=== PATIENT | female | born 1965 | race Caucasian/White ===

== ENCOUNTER → 2016-09-29 | Outpatient (CLI) | payer OTHER ==
[~2016-09-29] MED LIST: BENA25CA4 PO; CALC500T49 PO; CALC600T57 PO; CARA1TAB2 PO; DULE200A INH; EFFE75CA75 PO; GABA600T PO; HYDR1TAB97 PO; IRON65TA PO; METF500T PO; MULTTAB35 PO; OMEP40CA2 PO; PROA1AER IN; SING10TA32 PO; TRAM50TA2 PO; TYLE325T5 PO; VITA2000 PO; VITA500L3 PO; VITMTA PO
--- NOTE | 2016-09-29 13:43 | REP ---
MR LUMBAR SPINE WITHOUT CONTRAST: HISTORY: Piriformis muscle pain. COMPARISON: 05/25/2011. Decreased signal intensity on T2-weighted images is present in the L5-S1 intervertebral disc. This represents disc degeneration. There is no disc bulge or herniation at the L1-2, L2-3, and L5-S1 levels. There is hypertrophy of the posterior articulating facets at the L5-S1 level. The nerves exit the neural foramina without compression. A diffuse disc bugle is present at the L3-4 level. There is minimal compression of the thecal sac. There is hypertrophy of the posterior articulating facets. The L3 nerves exit the neural foramina without compression. A diffuse disc bulge is present at the L4-5 level. There is minimal compression of the thecal sac. There is hypertrophy of the posterior articulating facets. There is compression of the right L4 nerve in the neural foramen. The left L4 nerve exits the neural foramen without compression. The conus medullaris is normal in appearance terminating at the level of the L1 vertebral body. An increased amount of fat is present in the spinal canal at the L4-5 and L5-S1 levels. This is decreased compared to the previous study. A hemangioma is present in the L2 vertebral body. Normal signal intensity is present in the remaining lumbar vertebral bodies. IMPRESSION: 1. Diffuse disc bulges at the L3-4 and L4-5 levels with minimal thecal sac compression. There is compression of the right L4 nerve in the neural foramen. The disc bulge at the L4-5 level and right L4 nerve compression are new findings. 2. There is lipomatosis at the L4-5 and L5-S1 levels that is decreased compared to the previous study. Signed by Binu Pineda MD 09/29/2016 01:53 P
== END ==
LOC: M RAD 11:22
PROVIDERS: ATTEND Nurse Practitioner Family
DX: M79.1 Myalgia (principal); M51.26 Other intervertebral disc displacement, lumbar region; E88.2 Lipomatosis, not elsewhere classified

== ENCOUNTER → 2019-05-23 | Outpatient (REF) | payer OTHER ==
[~2019-05-23] MED LIST changes: -CARA1TAB2 PO; +CARA1TAB6 PO; +EFFE75CA2 PO; -EFFE75CA75 PO; -GABA600T PO; +GABA600T4 PO; +HYDR-3713 PO; -HYDR1TAB97 PO; -METF500T PO; +METF500T13 PO; -PROA1AER IN; +PROAAER10 IN
[2019-05-23 17:17] LABS: HEMATOCRIT 42.6 % (36.0-47.0); HEMOGLOBIN 13.8 g/dl (12.0-15.5); MEAN CORPUSCULAR HEMOGLOBIN 32.2 pg (27.0-33.0); MEAN CORPUSCULAR HGB CONC 32.4 g/dl (32.0-36.5); MEAN CORPUSCULAR VOLUME 99.5 fl (80.0-96.0); PLATELET COUNT, AUTOMATED 331 10^3/uL (150-450); RED BLOOD COUNT 4.28 10^6/uL (4.00-5.40); WHITE BLOOD COUNT 10.5 10^3/uL (4.0-10.0)
[2019-05-23 17:26] LABS: ALBUMIN 3.5 GM/DL (3.2-5.2); ALT/SGPT 47 U/L (12-78); BILIRUBIN,TOTAL 0.3 MG/DL (0.2-1.0); BLOOD UREA NITROGEN 12 MG/DL (7-18); CALCIUM LEVEL 8.8 MG/DL (8.5-10.1); CARBON DIOXIDE LEVEL 27 MEQ/L (21-32); CHLORIDE LEVEL 109 MEQ/L (98-107); CREATININE FOR GFR 0.66 MG/DL (0.55-1.30); FERRITIN 31 NG/ML (8-252); GLOMERULAR FILTRATION RATE > 60.0 (>51); GLUCOSE, FASTING 101 MG/DL (70-100); IRON (FE) 67 UG/DL (50-170); PERCENT SATURATION 20.8 % (13.2-45.0); POTASSIUM SERUM 4.1 MEQ/L (3.5-5.1); SODIUM LEVEL 141 MEQ/L (136-145); TOTAL IRON BINDING CAPACITY 322 UG/DL (250-450); TOTAL PROTEIN 7.1 GM/DL (6.4-8.2)
[2019-05-23 17:34] LABS: TOTAL 25(OH) VITAMIN D 50.6 NG/ML (30.0-100.0); VITAMIN B12 LEVEL 395 PG/ML (247-911)
[2019-05-23 17:52] LABS: HEMOGLOBIN A1c 6.4 %
== END ==
LOC: M SFHCPLAZ 15:46
PROVIDERS: ATTEND Nurse Practitioner Adult Health
DX: E53.8 Deficiency of other specified B group vitamins (principal); E55.9 Vitamin D deficiency, unspecified; Z98.84 Bariatric surgery status; Z86.39 Personal history of other endocrine, nutritional and metabolic disease

== ENCOUNTER 2019-06-22 11:36 | Emergency (ER) | payer OTHER ==
[~2019-06-22] VITALS: Ht 154.9 cm; Wt 94.6 kg
--- NOTE | 2019-06-22 13:28 | REP ---
Duplex extremity venous ultrasound: Left lower extremity. History: Left lateral calf pain and swelling. Question DVT. Findings: The deep veins are anechoic and fully compressible from the groin to the popliteal fossa in the left lower extremity. Color flow imaging is homogeneous. Spectral Doppler interrogation demonstrates intact respiratory variation in flow and normal manual augmentation of flow. There is no evidence of deep vein thrombosis. Impression: Negative left lower extremity duplex venous ultrasound. No evidence of deep vein thrombosis. Electronically Signed by Víctor Cartagena MD 06/22/2019 01:19 P
[2019-06-22 14:58] VITALS: BP 140/76
== END 2019-06-22 15:24 | disposition home or self-care (01) ==
LOC: M ED 11:36
DX: M79.662 Pain in left lower leg (principal); F33.9 Major depressive disorder, recurrent, unspecified; F41.9 Anxiety disorder, unspecified; Z86.718 Personal history of other venous thrombosis and embolism; Z98.84 Bariatric surgery status; Z79.899 Other long term (current) drug therapy; Z88.0 Allergy status to penicillin; Z88.1 Allergy status to other antibiotic agents; Z88.2 Allergy status to sulfonamides; Z91.048 Other nonmedicinal substance allergy status

== ENCOUNTER → 2019-11-14 | Outpatient (CLI) | payer OTHER ==
[~2019-11-14] MED LIST changes: -OMEP40CA2 PO; +OMEP40CA97 PO
== END ==
LOC: M WHC 13:43
PROVIDERS: ATTEND Nurse Practitioner Women's Health
DX: Z12.31 Encounter for screening mammogram for malignant neoplasm of breast (principal)

== ENCOUNTER → 2019-11-30 | Outpatient (CLI) | payer OTHER ==
--- NOTE | 2019-11-30 14:33 | REP ---
Pelvic sonography: History: Pelvic pain. Mainly left-sided. History of left ovarian cyst. Findings: Transabdominal and transvaginal scanning are included. Uterus is surgically absent. The right ovary is high in the pelvis and is only seen transabdominally. It is felt to be normal. It measures 2.0 x 2 point 2 x 1.4 cm. A normal left ovary is noted as well measuring 2.1 x 1.4 x 1.1 cm. No free fluid is seen. No cyst or mass is observed. Impression: Negative pelvic sonography post hysterectomy. Electronically Signed by Víctor Cartagena MD 11/30/2019 02:26 P
== END ==
LOC: M WHC 10:23
PROVIDERS: ATTEND Nurse Practitioner Women's Health
DX: N83.202 Unspecified ovarian cyst, left side (principal)

== ENCOUNTER → 2020-06-19 | Outpatient (CLI) | payer OTHER ==
[2020-06-19 17:45] LABS: HEMATOCRIT 41.8 % (36.0-47.0); HEMOGLOBIN 13.2 g/dl (12.0-15.5); MEAN CORPUSCULAR HEMOGLOBIN 31.1 pg (27.0-33.0); MEAN CORPUSCULAR HGB CONC 31.6 g/dl (32.0-36.5); MEAN CORPUSCULAR VOLUME 98.4 fl (80.0-96.0); PLATELET COUNT, AUTOMATED 333 10^3/uL (150-450); RED BLOOD COUNT 4.25 10^6/uL (4.00-5.40); WHITE BLOOD COUNT 11.1 10^3/uL (4.0-10.0)
[2020-06-19 18:02] LABS: HEMOGLOBIN A1c 6.4 %
[2020-06-19 18:12] LABS: ALBUMIN 3.4 GM/DL (3.2-5.2); ALT/SGPT 48 U/L (12-78); BILIRUBIN,TOTAL 0.4 MG/DL (0.2-1.0); BLOOD UREA NITROGEN 11 MG/DL (7-18); CALCIUM LEVEL 9.1 MG/DL (8.5-10.1); CARBON DIOXIDE LEVEL 25 MEQ/L (21-32); CHLORIDE LEVEL 114 MEQ/L (98-107); CHOLESTEROL LEVEL 122 MG/DL (<200); CREATININE FOR GFR 0.82 MG/DL (0.55-1.30); FERRITIN 30 NG/ML (8-252); GLOMERULAR FILTRATION RATE > 60.0 (>51); GLUCOSE, FASTING 130 MG/DL (70-100); HDL CHOLESTEROL 67 MG/DL (>40); IRON (FE) 96 UG/DL (50-170); LDL CHOLESTEROL 42 MG/DL (<100); NON-HDL-C 55 MG/DL; PERCENT SATURATION 30.5 % (13.2-45.0); POTASSIUM SERUM 5.3 MEQ/L (3.5-5.1); SODIUM LEVEL 144 MEQ/L (136-145); THYROID STIMULATING HORMONE 0.626 uIU/ML (0.358-3.740); TOTAL IRON BINDING CAPACITY 315 UG/DL (250-450); TOTAL PROTEIN 6.9 GM/DL (6.4-8.2); TRIGLYCERIDES LEVEL 66 MG/DL (<150)
[2020-06-19 18:14] LABS: TOTAL 25(OH) VITAMIN D 59.4 NG/ML (30.0-100.0)
[2020-06-19 18:15] LABS: VITAMIN B12 LEVEL 515 PG/ML (247-911)
== END ==
LOC: M PLALAB 14:23
PROVIDERS: ATTEND Nurse Practitioner Adult Health
DX: D51.9 Vitamin B12 deficiency anemia, unspecified (principal); Z13.29 Encounter for screening for other suspected endocrine disorder; E55.9 Vitamin D deficiency, unspecified; E78.5 Hyperlipidemia, unspecified; E66.01 Morbid (severe) obesity due to excess calories; Z86.39 Personal history of other endocrine, nutritional and metabolic disease; Z98.84 Bariatric surgery status

== ENCOUNTER → 2020-09-29 | Outpatient (CLI) | payer SELFPAY | LOC: M LABSMTC 12:27 | PROVIDERS: ATTEND Pediatrics | DX: Z20.822 Contact with and (suspected) exposure to COVID-19 (principal) ==

== ENCOUNTER → 2020-11-26 | Outpatient (CLI) | payer OTHER ==
--- NOTE | 2020-11-26 08:58 | REP ---
INDICATION: NAUSEA COMPARISON: None. TECHNIQUE: Real time dickens scale ultrasound examination using curved array transducer. FINDINGS: Liver is somewhat obscured by bowel gas, but visualized portions demonstrate heterogeneous echotexture without focal hepatic lesion identified. Pancreas is incompletely evaluated due to interposed bowel gas as well but visualized portions appear normal. Gallbladder is distended to 10.5 cm in length and roughly 3.5 cm diameter without wall thickening, gallstones, or pericholecystic fluid. No biliary ductal dilatation is appreciated and the common bile duct measures 4 mm diameter. Right kidney is normal in reniform shape without hydronephrosis and measures 11.4 x 5.5 x 4.5 cm with cortical thinning and increased central sinus fat suggesting chronic renal disease. IMPRESSION: 1. Limited evaluation of the liver and pancreas due to interposed bowel gas. Visualized portions of both appear normal. 2. Findings suggesting chronic medical renal disease. No hydronephrosis. <Electronically signed by Ruben Michele > 11/26/20 [id number]
== END ==
LOC: M RAD 08:06
PROVIDERS: ATTEND Internal Medicine Gastroenterology
DX: R11.0 Nausea (principal)

== ENCOUNTER → 2020-12-31 | Outpatient (CLI) | payer OTHER ==
--- NOTE | 2020-12-31 11:02 | REP ---
INDICATION: DISEASES OF GALLBLADDER, NAUSEA, EPIGASTRIC PAIN. COMPARISON: None TECHNIQUE/RADIOTRACER AND DOSE: FOLLOWING THE INTRAVENOUS ADMINISTRATION OF 6.6 MCI TECHNETIUM 99 M-MEBROFENIN, MULTIPLE IMAGES OF THE RIGHT UPPER QUADRANT ARE PERFORMED FOR 60 MINUTES. NEXT 8 OZ OF ENSURE ENLIVE IS INGESTED AND FURTHER IMAGING IS PERFORMED FOR 65 MINUTES. FINDINGS: THE GALLBLADDER IS VISUALIZED AT 10 MINUTES POST INJECTION. THERE IS no BILIARY TO BOWEL TRANSIT AT 1 hour POST INJECTION. THERE IS NO SCINTIGRAPHIC EVIDENCE OF CHOLECYSTITIS. There is biliary to bowel transit immediately after ingestion of Ensure. GALLBLADDER EJECTION FRACTION IS CALCULATED TO BE 33% WHICH IS slightly below normal of greater than 35%. 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 <Electronically signed by Toño Black > 12/31/20 0720
== END ==
LOC: M RAD 07:55
PROVIDERS: ATTEND Internal Medicine Gastroenterology
DX: K82.8 Other specified diseases of gallbladder (principal); R11.0 Nausea; R10.13 Epigastric pain
CPT/HCPCS: 78227; A9537

== ENCOUNTER → 2021-01-07 | Outpatient (CLI) | payer OTHER, MEDICAID ==
[~2021-01-07] MED LIST changes: +ACET32TAB PO; +AMBI10TA PO; +ATOR1TAB21 PO; +BIOT1CAP2 PO; +CYAN500T14 PO; +D31000TA2 PO; +DICY1CAP8 PO; +HYDR-643 PO; +PRAZ1CAP PO; -PROAAER10 IN; +PROAAER10 INH; +TIZA4TAB4 PO; +TOPI50TA9 PO; +VENL150C43 PO
== END ==
LOC: M LABSMTC 12:15
PROVIDERS: ATTEND Anesthesiology
DX: Z01.818 Encounter for other preprocedural examination (principal); Z11.52 Encounter for screening for COVID-19

== ENCOUNTER → 2021-01-08 | Outpatient (REF) | payer OTHER ==
[2021-01-08 23:08] LABS: ALBUMIN 3.7 GM/DL (3.2-5.2); ALT/SGPT 89 U/L (12-78); BILIRUBIN,TOTAL 0.4 MG/DL (0.2-1.0); BLOOD UREA NITROGEN 11 MG/DL (7-18); CALCIUM LEVEL 9.5 MG/DL (8.5-10.1); CARBON DIOXIDE LEVEL 28 MEQ/L (21-32); CHLORIDE LEVEL 111 MEQ/L (98-107); CREATININE FOR GFR 0.63 MG/DL (0.55-1.30); GLOMERULAR FILTRATION RATE > 60.0 (>51); GLUCOSE, FASTING 159 MG/DL (70-100); POTASSIUM SERUM 4.8 MEQ/L (3.5-5.1); SODIUM LEVEL 143 MEQ/L (136-145); TOTAL PROTEIN 6.9 GM/DL (6.4-8.2)
[2021-01-09 10:17] LABS: TOTAL 25(OH) VITAMIN D 66.7 NG/ML (30.0-100.0)
[2021-01-09 10:36] LABS: VITAMIN B12 LEVEL 484 PG/ML (247-911)
== END ==
LOC: M SFHCPLAZ 12:58
PROVIDERS: ATTEND Nurse Practitioner Adult Health
DX: E53.8 Deficiency of other specified B group vitamins (principal); E55.9 Vitamin D deficiency, unspecified; Z86.39 Personal history of other endocrine, nutritional and metabolic disease

== ENCOUNTER 2021-01-12 14:14 | Day surgery (SDC) | payer OTHER ==
[~2021-01-12] VITALS: Ht 157.5 cm; Wt 79.8 kg
[~2021-01-12 14:14] MED LIST changes: +NS 1,000 ML IV ONE
[2021-01-12] MEDS ORDERED: LIDOCAINE 2% 100MG/5ML SDV (FOR ANES.) As Ordered ONE (16:37)
[2021-01-12] MEDS ORDERED: propofoL 200 MG/20 ML VIAL As Ordered ONE ×2 (16:37→16:39)
--- NOTE | 2021-01-12 16:46 | ROOR ---
Patient Name: Alannah Harris Procedure Date: 01/12/2021 4:29 PM Date of : 1965 Age: 55 Room: [facility] Gender: Female Note Status: Finalized Procedure: Upper GI endoscopy Indications: Epigastric abdominal pain, Nausea Providers: Claudio HERNÁNDEZ MD Referring MD: Dionne Rader NP Requesting Provider: Medicines: Monitored Anesthesia Care Complications: No immediate complications. Procedure: Pre-Anesthesia Assessment: - The heart rate, respiratory rate, oxygen saturations, blood pressure, adequacy of pulmonary ventilation, and response to care were monitored throughout the procedure. The Endoscope was introduced through the mouth, and advanced to the jejunum. The upper GI endoscopy was accomplished without difficulty. The patient tolerated the procedure well. Findings: The examined esophagus was normal. 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 The gastrojejunal anastomosis was characterized by healthy appearing mucosa. The exam of the stomach was otherwise normal. The examined jejunum was normal. Impression: - Normal esophagus. - Cathy-en-Y gastrojejunostomy with widely patent gastrojejunal anastomosis characterized by healthy appearing mucosa. - Normal examined jejunum. - No specimens collected. Recommendation: - Eat smaller, more frequent meals throughout the day. - Low fat diet. - Liquid/soft foods are tolerated better than solid foods. - Low fiber/well cooked vegetables are tolerated better than high fiber/fibrous foods/raw vegetables. - Avoid medications that inhibit gastric/intestinal motility such as narcotic medications. - Observe patient's clinical course. Procedure Code(s): --- Professional --- 32782, Esophagogastroduodenoscopy, flexible, transoral; diagnostic, including collection of specimen(s) by brushing or washing, when performed (separate procedure) Diagnosis Code(s): --- Professional --- R11.0, Nausea R10.13, Epigastric pain Z98.0, Intestinal bypass and anastomosis status CPT copyright 2019 [employer]. All rights reserved. The codes documented in this report are preliminary and upon [employer] consultant review may be revised to meet current compliance requirements. Claudio Hernández MD Claudio HERNÁNDEZ MD 01/12/2021 4:45:37 PM Electronically signed by Claudio HERNÁNDEZ MD Number of Addenda: 0 Note Initiated On: 01/12/2021 4:29 PM Estimated Blood Loss: Estimated blood loss: none.
[2021-01-12 17:00] VITALS: BP 123/73
== END 2021-01-12 17:21 | disposition home or self-care (01) ==
LOC: M OPP 14:14
PROVIDERS: ATTEND Internal Medicine Gastroenterology
DX: R10.13 Epigastric pain (principal); R13.0 Aphagia; Z98.0 Intestinal bypass and anastomosis status

== ENCOUNTER → 2021-11-05 | Outpatient (REF) | payer OTHER ==
[~2021-11-05] MED LIST changes: -NS 1,000 ML IV ONE; +OMEP40CA4 PO; -OMEP40CA97 PO; +TIZA10TA PO; -TIZA4TAB4 PO
== END ==
LOC: M SFHCPLAZ 09:47
PROVIDERS: ATTEND Family Medicine
DX: D22.9 Melanocytic nevi, unspecified (principal)

== ENCOUNTER → 2021-12-08 | Outpatient (CLI) | payer OTHER, MEDICAID ==
[~2021-12-08] MED LIST changes: -D31000TA2 PO; +VITA100093 PO
[2021-12-08 13:20] LABS: HEMATOCRIT 42.2 % (36.0-47.0); HEMOGLOBIN 13.6 g/dl (12.0-15.5); MEAN CORPUSCULAR HEMOGLOBIN 31.2 pg (27.0-33.0); MEAN CORPUSCULAR HGB CONC 32.2 g/dl (32.0-36.5); MEAN CORPUSCULAR VOLUME 96.8 fl (80.0-96.0); PLATELET COUNT, AUTOMATED 337 10^3/uL (150-450); RED BLOOD COUNT 4.36 10^6/uL (4.00-5.40); WHITE BLOOD COUNT 10.1 10^3/uL (4.0-10.0)
[2021-12-08 14:22] LABS: ALBUMIN 3.8 GM/DL (3.2-5.2); ALT/SGPT 81 U/L (12-78); BILIRUBIN,TOTAL 0.4 MG/DL (0.2-1.0); BLOOD UREA NITROGEN 18 MG/DL (7-18); CALCIUM LEVEL 9.4 MG/DL (8.5-10.1); CARBON DIOXIDE LEVEL 29 MEQ/L (21-32); CHLORIDE LEVEL 111 MEQ/L (98-107); CREATININE FOR GFR 0.73 MG/DL (0.55-1.30); FERRITIN 35 NG/ML (8-252); GLOMERULAR FILTRATION RATE > 60.0 (>51); GLUCOSE, FASTING 132 MG/DL (70-100); IRON (FE) 111 UG/DL (50-170); PERCENT SATURATION 33.5 % (13.2-45.0); POTASSIUM SERUM 5.7 MEQ/L (3.5-5.1); SODIUM LEVEL 141 MEQ/L (136-145); TOTAL IRON BINDING CAPACITY 331 UG/DL (250-450); TOTAL PROTEIN 7.1 GM/DL (6.4-8.2)
[2021-12-08 14:28] LABS: TOTAL 25(OH) VITAMIN D 53.4 NG/ML (30.0-100.0); VITAMIN B12 LEVEL 775 PG/ML (247-911)
[2021-12-08 15:17] LABS: HEMOGLOBIN A1c 6.4 %
== END ==
LOC: M PLALAB 12:00
PROVIDERS: ATTEND Nurse Practitioner Adult Health
DX: E53.8 Deficiency of other specified B group vitamins (principal)

== ENCOUNTER → 2021-12-09 | Outpatient (CLI) | payer OTHER ==
[2021-12-09 14:34] LABS: MALB URINE SIEMENS 13.8 MG/L; MAU/CREAT RATIO 6.3 MCG/MG (0.0-30.0)
== END ==
LOC: M PLALAB 11:21
PROVIDERS: ATTEND Nurse Practitioner Adult Health
DX: E53.8 Deficiency of other specified B group vitamins (principal)

== ENCOUNTER → 2021-12-09 | Outpatient (CLI) | payer OTHER | LOC: M RAD 11:23 → M PLAIMG 11:23 | PROVIDERS: ATTEND Nurse Practitioner Adult Health | DX: J45.40 Moderate persistent asthma, uncomplicated (principal) ==

== ENCOUNTER → 2021-12-30 | Outpatient (CLI) | payer OTHER ==
[~2021-12-30] MED LIST changes: +ERGO500029
== END ==
LOC: M PLAIMG 10:51
PROVIDERS: ATTEND Nurse Practitioner Adult Health
DX: G43.019 Migraine without aura, intractable, without status migrainosus (principal); Z83.49 Family history of other endocrine, nutritional and metabolic diseases

== ENCOUNTER 2022-01-02 06:50 | Emergency (ER) | payer OTHER ==
[~2022-01-02] VITALS: Ht 154.9 cm; Wt 81.4 kg
[2022-01-02] MEDS ORDERED: ONDANSETRON 4MG/2ML VIAL IV ONE (07:10)
[2022-01-02] MEDS ORDERED: MORPHINE 2 MG/ML 1ML VIAL IV ONE (07:10)
[2022-01-02 07:41] LABS: BASO % 0.3 % (0.0-1.0); EOS # 0.1 10^3/uL (0.0-0.5); EOS % 0.7 % (0.0-3.0); HEMATOCRIT 40.3 % (36.0-47.0); HEMOGLOBIN 13.3 g/dl (12.0-15.5); LYMPH # 2.4 10^3/uL (1.5-5.0); LYMPH % 23.9 % (24.0-44.0); MEAN CORPUSCULAR HEMOGLOBIN 31.9 pg (27.0-33.0); MEAN CORPUSCULAR VOLUME 96.6 fl (80.0-96.0); MONO # 0.4 10^3/uL (0.0-0.8); MONO % 3.9 % (2.0-8.0); NEUTROPHILS # 7.2 10^3/uL (1.5-8.5); NEUTROPHILS % 70.8 % (36.0-66.0); PLATELET COUNT, AUTOMATED 323 10^3/uL (150-450); RED BLOOD COUNT 4.17 10^6/uL (4.00-5.40); WHITE BLOOD COUNT 10.1 10^3/uL (4.0-10.0)
[2022-01-02] MEDS ORDERED: NS 1,000 ML IV ONE (07:45)
[2022-01-02] MEDS ORDERED: ISOVUE-370 76% 100ML VIAL As Ordered ONE (08:04)
[2022-01-02 08:07] LABS: ALBUMIN 3.3 GM/DL (3.2-5.2); BILIRUBIN,DIRECT 0.1 MG/DL (0.0-0.2); BILIRUBIN,TOTAL 0.4 MG/DL (0.2-1.0); FREE T4 1.08 NG/DL (0.76-1.46); THYROID STIMULATING HORMONE 2.43 uIU/ML (0.358-3.740); TOTAL PROTEIN 6.8 GM/DL (6.4-8.2)
[2022-01-02] MEDS: MORPHINE 2 MG/ML 1ML VIAL IV PRN ×2 (08:11→09:19)
[2022-01-02] MEDS ORDERED: PERC5TAB12 PO (09:44)
[2022-01-02 10:01] VITALS: BP 116/73
== END 2022-01-02 10:14 | disposition home or self-care (01) ==
LOC: M ED 06:50
DX: R07.9 Chest pain, unspecified (principal); R10.9 Unspecified abdominal pain; R31.9 Hematuria, unspecified; E78.9 Disorder of lipoprotein metabolism, unspecified; F33.9 Major depressive disorder, recurrent, unspecified; F41.9 Anxiety disorder, unspecified; G47.30 Sleep apnea, unspecified; K21.9 Gastro-esophageal reflux disease without esophagitis; Z86.718 Personal history of other venous thrombosis and embolism; Z98.84 Bariatric surgery status; Z88.0 Allergy status to penicillin; Z88.1 Allergy status to other antibiotic agents; Z88.2 Allergy status to sulfonamides; Z88.8 Allergy status to other drugs, medicaments and biological substances; Z91.048 Other nonmedicinal substance allergy status; Z87.891 Personal history of nicotine dependence; Z79.899 Other long term (current) drug therapy
CPT/HCPCS: 71045; 71275; 74177; 80047; 80076; 81001; 82150; 83605; 83690; 84439; 84443; 85025; 93005; 93041; 94760; 96361; 96374; 96375; 96376; 99285; J2270; J2405; Q9967

== ENCOUNTER → 2022-01-04 | Outpatient (REF) | payer OTHER ==
[~2022-01-04] MED LIST changes: +PERC5TAB12 PO
[2022-01-05 10:33] LABS: AMORPHOUS SEDIMENT LARGE (NEGATIVE); APPEARANCE, URINE TURBID (CLEAR); BACTERIA, URINE AUTO NEGATIVE (NEGATIVE); BILIRUBIN, URINE AUTO NEGATIVE (NEGATIVE); BLOOD, URINE BLOOD NEGATIVE (NEGATIVE); COLOR, URINE AMBER (YELLOW); GLUCOSE, URINE (UA) AUTO NEGATIVE (NEGATIVE); KETONE, URINE AUTO TRACE mg/dL (NEGATIVE); LEUKOCYTE ESTERASE, URINE AUTO TRACE (NEGATIVE); MUCUS, URINE SMALL (NEGATIVE); NITRITE, URINE AUTO NEGATIVE (NEGATIVE); PROTEIN, URINE AUTO 1+ mg/dL (NEGATIVE); RBC, URINE AUTO 0 /HPF (0-3); SPECIFIC GRAVITY URINE AUTO 1.031 (1.002-1.035); SQUAMOUS EPITHELIAL CELL UR AU 7 /HPF (0-6); WBC, URINE AUTO 0 /HPF (0-3)
== END ==
LOC: M SFHCPLAZ 09:43
PROVIDERS: ATTEND Physician Assistant
DX: R31.9 Hematuria, unspecified (principal)

== ENCOUNTER → 2022-01-18 | Outpatient (CLI) | payer OTHER | LOC: M PLAIMG 12:16 | PROVIDERS: ATTEND Nurse Practitioner Adult Health | DX: M25.511 Pain in right shoulder (principal); M25.512 Pain in left shoulder; M54.2 Cervicalgia ==

== ENCOUNTER → 2022-02-04 | Outpatient (CLI) | payer OTHER | LOC: M WHC 13:18 | PROVIDERS: ATTEND Nurse Practitioner Adult Health | DX: Z12.31 Encounter for screening mammogram for malignant neoplasm of breast (principal) ==

== ENCOUNTER 2022-03-11 23:36 | Emergency (ER) | payer MEDICAID, OTHER ==
[~2022-03-11] VITALS: Ht 154.9 cm; Wt 83.2 kg
[2022-03-12] MEDS ORDERED: BOOSTRIX/ADACEL VACCINE (DIPHTH/PERTUSS/ACELL/TETANUS) 0.5ML SYR IM.IMMUN ONE (06:15)
[2022-03-12] MEDS ORDERED: LIDOCAINE 2% W/EPINEPHRINE 20ML VIAL **PRES FREE INJ ONE (06:15)
[2022-03-12] MEDS ORDERED: PERCOCET 5MG/325MG TAB PO ONE (06:15)
[2022-03-12 07:44] VITALS: BP 124/77
== END 2022-03-12 07:47 | disposition home or self-care (01) ==
LOC: M ED 23:36
DX: S81.011A Laceration without foreign body, right knee, initial encounter (principal); W54.8XXA Other contact with dog, initial encounter; W01.0XXA Fall on same level from slipping, tripping and stumbling without subsequent striking against object, initial encounter; Y92.009 Unspecified place in unspecified non-institutional (private) residence as the place of occurrence of the external cause; Y93.9 Activity, unspecified; Y99.9 Unspecified external cause status; Z88.0 Allergy status to penicillin; Z88.1 Allergy status to other antibiotic agents; Z88.2 Allergy status to sulfonamides; Z91.048 Other nonmedicinal substance allergy status

== ENCOUNTER → 2022-07-01 | Outpatient (REF) | payer OTHER ==
[~2022-07-01] MED LIST changes: -DULE200A INH; +MOME13HF7 INH
[2022-07-01 13:32] LABS: HEMATOCRIT 44.1 % (36.0-47.0); HEMOGLOBIN 14.2 g/dl (12.0-15.5); MEAN CORPUSCULAR HEMOGLOBIN 31.6 pg (27.0-33.0); MEAN CORPUSCULAR HGB CONC 32.2 g/dl (32.0-36.5); PLATELET COUNT, AUTOMATED 382 10^3/uL (150-450); WHITE BLOOD COUNT 8.2 10^3/uL (4.0-10.0)
[2022-07-01 14:15] LABS: ALBUMIN 3.6 GM/DL (3.2-5.2); ALT/SGPT 65 U/L (12-78); BILIRUBIN,TOTAL 0.4 MG/DL (0.2-1.0); BLOOD UREA NITROGEN 10 MG/DL (7-18); CALCIUM LEVEL 9.5 MG/DL (8.5-10.1); CARBON DIOXIDE LEVEL 28 MEQ/L (21-32); CHLORIDE LEVEL 109 MEQ/L (98-107); CHOLESTEROL LEVEL 164 MG/DL (<200); CHOLESTEROL RISK RATIO 1.952 (<5); CREATININE FOR GFR 0.82 MG/DL (0.55-1.30); GLOMERULAR FILTRATION RATE > 60.0 (>51); GLUCOSE, FASTING 144 MG/DL (70-100); HDL CHOLESTEROL 84 MG/DL (>40); IRON (FE) 85 UG/DL (50-170); LDL CHOLESTEROL 64 MG/DL (<100); NON-HDL-C 80 MG/DL; PERCENT SATURATION 22.3 % (13.2-45.0); POTASSIUM SERUM 5.2 MEQ/L (3.5-5.1); SODIUM LEVEL 141 MEQ/L (136-145); TOTAL IRON BINDING CAPACITY 381 UG/DL (250-450); TOTAL PROTEIN 7.5 GM/DL (6.4-8.2); TRIGLYCERIDES LEVEL 80 MG/DL (<150)
[2022-07-01 14:37] LABS: MALB URINE SIEMENS 18.6 MG/L; MAU/CREAT RATIO 6.6 MCG/MG (0.0-30.0)
[2022-07-02 15:50] LABS: VITAMIN B12 LEVEL 1443 PG/ML (247-911)
== END ==
LOC: M PLALAB 12:56
PROVIDERS: ATTEND Nurse Practitioner Adult Health
DX: Z98.84 Bariatric surgery status (principal); Z86.39 Personal history of other endocrine, nutritional and metabolic disease; E66.01 Morbid (severe) obesity due to excess calories; E78.5 Hyperlipidemia, unspecified

== ENCOUNTER → 2022-07-25 | Outpatient (CLI) | payer OTHER | LOC: M LABSMTC 10:58 | PROVIDERS: ATTEND Anesthesiology Pain Medicine | DX: Z01.812 Encounter for preprocedural laboratory examination (principal); Z20.822 Contact with and (suspected) exposure to COVID-19 ==

== ENCOUNTER → 2022-10-04 | Outpatient (CLI) | payer OTHER | LOC: M RAD 15:15 | PROVIDERS: ATTEND Anesthesiology Pain Medicine | DX: M47.817 Spondylosis without myelopathy or radiculopathy, lumbosacral region (principal) ==

== ENCOUNTER → 2023-02-08 | Outpatient (CLI) | payer OTHER ==
[~2023-02-08] MED LIST changes: +MONT-5 PO; -SING10TA32 PO; +TOPI-254 PO; -TOPI50TA9 PO
[2023-02-08 13:37] LABS: HEMATOCRIT 44.4 % (36.0-47.0); MEAN CORPUSCULAR HEMOGLOBIN 31.1 pg (27.0-33.0); MEAN CORPUSCULAR HGB CONC 31.5 g/dl (32.0-36.5); MEAN CORPUSCULAR VOLUME 98.7 fl (80.0-96.0); PLATELET COUNT, AUTOMATED 350 10^3/uL (150-450); TOTAL IRON BINDING CAPACITY 355 UG/DL (250-425); WHITE BLOOD COUNT 8.7 10^3/uL (4.0-10.0)
[2023-02-08 13:38] LABS: ALBUMIN 3.3 G/DL (3.2-5.2); ALKALINE PHOSPHATASE 168 U/L (46-116); ALT/SGPT 57 U/L (7.0-40); AST/SGOT 37 U/L (<34); BILIRUBIN,TOTAL 0.3 MG/DL (0.3-1.2); BLOOD UREA NITROGEN 17 MG/DL (9-23); CARBON DIOXIDE LEVEL 25 MMOL/L (20-31); CHLORIDE LEVEL 111 MMOL/L (98-107); CHOLESTEROL LEVEL 136 MG/DL (<200); CREATININE FOR GFR 0.68 MG/DL (0.55-1.30); FERRITIN 12.7 NG/ML (7.3-270.7); GLOMERULAR FILTRATION RATE > 60.0 (>51); GLUCOSE, FASTING 150 MG/DL (60-100); HDL CHOLESTEROL 67.7 MG/DL (>40); IRON (FE) 73 UG/DL (50-170); LDL CHOLESTEROL 52.5 MG/DL (<100); NON-HDL-C 68.3 MG/DL; PERCENT SATURATION 20.6 % (13.2-45.0); POTASSIUM SERUM 5.3 MMOL/L (3.5-5.1); SODIUM LEVEL 143 MMOL/L (136-145); THYROID STIMULATING HORMONE 1.937 uIU/ML (0.55-4.78); TOTAL PROTEIN 6.6 G/DL (5.7-8.2); TRIGLYCERIDES LEVEL 79 MG/DL (<150)
[2023-02-08 13:51] LABS: HEMOGLOBIN A1c 7.1 % (4.0-6.0)
[2023-02-08 14:01] LABS: CREATININE, URINE 171.3 MG/DL
[2023-02-08 14:02] LABS: MAU/CREAT RATIO 3.5 MCG/MG (0.0-30.0)
== END ==
LOC: M PLALAB 10:31
PROVIDERS: ATTEND Nurse Practitioner Adult Health
DX: Z98.84 Bariatric surgery status (principal)

== ENCOUNTER → 2023-09-15 | Outpatient (CLI) | payer OTHER ==
[~2023-09-15] MED LIST changes: +TOPI-21 PO; -TOPI-254 PO
[2023-09-15 14:28] LABS: HEMATOCRIT 41.2 % (36.0-47.0); HEMOGLOBIN 13.1 g/dl (12.0-15.5); MEAN CORPUSCULAR HEMOGLOBIN 31.5 pg (27.0-33.0); MEAN CORPUSCULAR HGB CONC 31.8 g/dl (32.0-36.5); PLATELET COUNT, AUTOMATED 369 10^3/uL (150-450); RED BLOOD COUNT 4.16 10^6/uL (4.00-5.40); WHITE BLOOD COUNT 10.3 10^3/uL (4.0-10.0)
[2023-09-15 14:47] LABS: HEMOGLOBIN A1c 7.4 % (4.0-6.0)
[2023-09-15 14:57] LABS: FERRITIN 17.6 NG/ML (7.3-270.7)
[2023-09-15 14:59] LABS: ALBUMIN 3.2 G/DL (3.2-5.2); ALKALINE PHOSPHATASE 135 U/L (46-116); ALT/SGPT 42 U/L (7.0-40); AST/SGOT 26 U/L (<34); BILIRUBIN,TOTAL 0.3 MG/DL (0.3-1.2); BLOOD UREA NITROGEN 17 MG/DL (9-23); CALCIUM LEVEL 9.7 MG/DL (8.5-10.1); CARBON DIOXIDE LEVEL 26 MMOL/L (20-31); CHLORIDE LEVEL 115 MMOL/L (98-107); CHOLESTEROL LEVEL 143 MG/DL (<200); CHOLESTEROL RISK RATIO 1.86 (<5); GLOMERULAR FILTRATION RATE > 60.0 (>51); GLUCOSE, FASTING 129 MG/DL (60-100); HDL CHOLESTEROL 76.5 MG/DL (>40); LDL CHOLESTEROL 55.1 MG/DL (<100); NON-HDL-C 66.5 MG/DL; POTASSIUM SERUM 5.3 MMOL/L (3.5-5.1); SODIUM LEVEL 145 MMOL/L (136-145); TOTAL PROTEIN 6.6 G/DL (5.7-8.2); TRIGLYCERIDES LEVEL 57 MG/DL (<150)
[2023-09-15 15:00] LABS: TOTAL 25(OH) VITAMIN D 31.8 NG/ML (20.0-100.0)
[2023-09-15 15:03] LABS: VITAMIN B12 LEVEL 690 PG/ML (211-911)
== END ==
LOC: M PLALAB 09:33
PROVIDERS: ATTEND Nurse Practitioner Adult Health
DX: Z98.84 Bariatric surgery status (principal)

== ENCOUNTER → 2023-11-30 | Outpatient (CLI) | payer OTHER ==
[2023-11-30 14:59] LABS: ALBUMIN 3.7 G/DL (3.2-5.2); ALKALINE PHOSPHATASE 156 U/L (46-116); ALT/SGPT 38 U/L (7.0-40); AST/SGOT 26 U/L (<34); BILIRUBIN,TOTAL 0.4 MG/DL (0.3-1.2); BLOOD UREA NITROGEN 12 MG/DL (9-23); CALCIUM LEVEL 8.8 MG/DL (8.5-10.1); CARBON DIOXIDE LEVEL 25 MMOL/L (20-31); CHLORIDE LEVEL 111 MMOL/L (98-107); CREATININE FOR GFR 0.64 MG/DL (0.55-1.30); GLOMERULAR FILTRATION RATE > 60.0 (>51); GLUCOSE, FASTING 114 MG/DL (60-100); POTASSIUM SERUM 5.1 MMOL/L (3.5-5.1); SODIUM LEVEL 141 MMOL/L (136-145); TOTAL PROTEIN 6.6 G/DL (5.7-8.2)
== END ==
LOC: M PLALAB 11:25
PROVIDERS: ATTEND Nurse Practitioner Adult Health
DX: E11.9 Type 2 diabetes mellitus without complications (principal)

== ENCOUNTER → 2024-03-13 | Outpatient (CLI) | payer OTHER ==
[~2024-03-13] MED LIST changes: +SEMA0.257 SC; +THERTAB52 PO; +VENTAER INH
== END ==
LOC: M PAIN 08:00
PROVIDERS: ATTEND Nurse Practitioner Family
DX: M51.16 Intervertebral disc disorders with radiculopathy, lumbar region (principal); I10 Essential (primary) hypertension; Z98.84 Bariatric surgery status; Z87.891 Personal history of nicotine dependence; Z79.02 Long term (current) use of antithrombotics/antiplatelets; Z79.1 Long term (current) use of non-steroidal anti-inflammatories (NSAID); Z79.899 Other long term (current) drug therapy; Z88.0 Allergy status to penicillin; Z88.1 Allergy status to other antibiotic agents; Z88.2 Allergy status to sulfonamides

== ENCOUNTER → 2024-03-22 | Outpatient (CLI) | payer OTHER ==
[2024-03-22 18:17] LABS: ALBUMIN 3.5 G/DL (3.2-5.2); ALKALINE PHOSPHATASE 147 U/L (46-116); ALT/SGPT 28 U/L (7.0-40); AST/SGOT 16 U/L (<34); BILIRUBIN,TOTAL 0.5 MG/DL (0.3-1.2); BLOOD UREA NITROGEN 12 MG/DL (9-23); CALCIUM LEVEL 9.1 MG/DL (8.5-10.1); CARBON DIOXIDE LEVEL 24 MMOL/L (20-31); CHLORIDE LEVEL 111 MMOL/L (98-107); CREATININE FOR GFR 0.68 MG/DL (0.55-1.30); GLOMERULAR FILTRATION RATE > 60.0 (>51); GLUCOSE, FASTING 87 MG/DL (60-100); POTASSIUM SERUM 4.6 MMOL/L (3.5-5.1); SODIUM LEVEL 143 MMOL/L (136-145); TOTAL PROTEIN 6.4 G/DL (5.7-8.2)
== END ==
LOC: M PLALAB 15:13
PROVIDERS: ATTEND Nurse Practitioner Adult Health
DX: E11.9 Type 2 diabetes mellitus without complications (principal)

== ENCOUNTER → 2024-05-29 | Outpatient (CLI) | payer OTHER ==
[~2024-05-29] MED LIST changes: +GABA-1490 PO; -GABA600T4 PO; +ISOVUE-M 300 61% 15ML VIAL As Ordered ONE; +LIDOCAINE 1% SDV 30ML VIAL As Ordered ONE; +NORCO, ANEXSIA 5/325MG TABLET (HYDROcodone/ACETAMINOPHEN) As Ordered ONE; +dexAMETHasone 10MG/1ML VIAL PRES.FREE As Ordered ONE; +diazePAM 5MG TABLET As Ordered ONE
== END ==
LOC: M PAIN 11:15
PROVIDERS: ATTEND Anesthesiology
DX: M51.16 Intervertebral disc disorders with radiculopathy, lumbar region (principal); G89.29 Other chronic pain; E11.9 Type 2 diabetes mellitus without complications; G47.33 Obstructive sleep apnea (adult) (pediatric); J45.909 Unspecified asthma, uncomplicated; I10 Essential (primary) hypertension; E28.2 Polycystic ovarian syndrome; E78.5 Hyperlipidemia, unspecified; M19.90 Unspecified osteoarthritis, unspecified site; F32.A Depression, unspecified; F41.9 Anxiety disorder, unspecified; G43.909 Migraine, unspecified, not intractable, without status migrainosus; Z87.891 Personal history of nicotine dependence; Z79.899 Other long term (current) drug therapy; Z88.0 Allergy status to penicillin; Z88.1 Allergy status to other antibiotic agents; Z88.2 Allergy status to sulfonamides; Z88.8 Allergy status to other drugs, medicaments and biological substances; Z91.048 Other nonmedicinal substance allergy status
CPT/HCPCS: 62323; J1100; Q9967

== ENCOUNTER → 2024-06-29 | Outpatient (CLI) | payer OTHER ==
[~2024-06-29] MED LIST changes: -ISOVUE-M 300 61% 15ML VIAL As Ordered ONE; -LIDOCAINE 1% SDV 30ML VIAL As Ordered ONE; -NORCO, ANEXSIA 5/325MG TABLET (HYDROcodone/ACETAMINOPHEN) As Ordered ONE; -dexAMETHasone 10MG/1ML VIAL PRES.FREE As Ordered ONE; -diazePAM 5MG TABLET As Ordered ONE
== END ==
LOC: M PAIN 10:15
PROVIDERS: ATTEND Nurse Practitioner Family
DX: G89.29 Other chronic pain (principal); M51.16 Intervertebral disc disorders with radiculopathy, lumbar region; E11.9 Type 2 diabetes mellitus without complications; G47.33 Obstructive sleep apnea (adult) (pediatric); J45.909 Unspecified asthma, uncomplicated; I10 Essential (primary) hypertension; E78.5 Hyperlipidemia, unspecified; M19.90 Unspecified osteoarthritis, unspecified site; F32.A Depression, unspecified; F41.9 Anxiety disorder, unspecified; G43.909 Migraine, unspecified, not intractable, without status migrainosus; Z87.891 Personal history of nicotine dependence; Z79.899 Other long term (current) drug therapy; Z88.0 Allergy status to penicillin; Z88.1 Allergy status to other antibiotic agents; Z88.2 Allergy status to sulfonamides; Z88.8 Allergy status to other drugs, medicaments and biological substances; Z91.048 Other nonmedicinal substance allergy status

== ENCOUNTER → 2024-07-26 | Outpatient (CLI) | payer OTHER ==
[2024-07-26 13:00] LABS: LIPASE 44 U/L (12-53)
[2024-07-26 13:01] LABS: HEMATOCRIT 42.1 % (36.0-47.0); HEMOGLOBIN 13.2 g/dl (12.0-15.5); MEAN CORPUSCULAR HGB CONC 31.4 g/dl (32.0-36.5); MEAN CORPUSCULAR VOLUME 98.8 fl (80.0-96.0); PLATELET COUNT, AUTOMATED 334 10^3/uL (150-450); RED BLOOD COUNT 4.26 10^6/uL (4.00-5.40); WHITE BLOOD COUNT 6.8 10^3/uL (4.0-10.0)
[2024-07-26 13:02] LABS: AMYLASE 35 U/L (30-118); IRON (FE) 96 UG/DL (50-170); PERCENT SATURATION 29.3 % (13.2-45.0); TOTAL IRON BINDING CAPACITY 328 UG/DL (250-425)
[2024-07-26 13:04] LABS: ALBUMIN 3.3 G/DL (3.2-5.2); ALKALINE PHOSPHATASE 130 U/L (35-104); ALT/SGPT 33 U/L (7.0-40); AST/SGOT 21 U/L (<34); BILIRUBIN,TOTAL 0.4 MG/DL (0.3-1.2); BLOOD UREA NITROGEN 10 MG/DL (9-23); CALCIUM LEVEL 9.5 MG/DL (8.5-10.1); CARBON DIOXIDE LEVEL 25 MMOL/L (20-31); CHLORIDE LEVEL 117 MMOL/L (98-107); CHOLESTEROL LEVEL 130 MG/DL (<200); CHOLESTEROL RISK RATIO 2.25 (<5); CREATININE FOR GFR 0.69 MG/DL (0.55-1.30); GLOMERULAR FILTRATION RATE > 60.0 (>51); GLUCOSE, FASTING 103 MG/DL (60-100); HDL CHOLESTEROL 57.7 MG/DL (>40); LDL CHOLESTEROL 60.7 MG/DL (<100); NON-HDL-C 72.3 MG/DL; POTASSIUM SERUM 5.2 MMOL/L (3.5-5.1); SODIUM LEVEL 146 MMOL/L (136-145); TOTAL PROTEIN 6.5 G/DL (5.7-8.2); TRIGLYCERIDES LEVEL 58 MG/DL (<150)
[2024-07-26 13:07] LABS: THYROID STIMULATING HORMONE 1.069 uIU/ML (0.55-4.78); TOTAL 25(OH) VITAMIN D 67.5 NG/ML (20.0-100.0)
[2024-07-26 13:08] LABS: FERRITIN 14.5 NG/ML (7.3-270.7)
[2024-07-26 13:09] LABS: FREE T4 0.91 NG/DL (0.89-1.76)
== END ==
LOC: M PLALAB 10:19
PROVIDERS: ATTEND Nurse Practitioner Adult Health
DX: E11.9 Type 2 diabetes mellitus without complications (principal); Z98.84 Bariatric surgery status; E78.5 Hyperlipidemia, unspecified

== ENCOUNTER → 2024-07-27 | Outpatient (CLI) | payer OTHER | LOC: M WHC 13:25 | PROVIDERS: ATTEND Nurse Practitioner Adult Health | DX: Z12.31 Encounter for screening mammogram for malignant neoplasm of breast (principal) ==

== ENCOUNTER → 2024-08-10 | Outpatient (REF) | payer OTHER | LOC: M LAB REF 16:09 | PROVIDERS: ATTEND Physician Assistant Medical | DX: R05.9 Cough, unspecified (principal) ==

== ENCOUNTER → 2024-10-01 | Outpatient (CLI) | payer OTHER ==
[2024-10-01 18:36] LABS: HEMATOCRIT 40.2 % (36.0-47.0); HEMOGLOBIN 12.9 g/dl (12.0-15.5); MEAN CORPUSCULAR HEMOGLOBIN 31.2 pg (27.0-33.0); MEAN CORPUSCULAR HGB CONC 32.1 g/dl (32.0-36.5); MEAN CORPUSCULAR VOLUME 97.1 fl (80.0-96.0); PLATELET COUNT, AUTOMATED 324 10^3/uL (150-450); RED BLOOD COUNT 4.14 10^6/uL (4.00-5.40); WHITE BLOOD COUNT 8.4 10^3/uL (4.0-10.0)
[2024-10-01 18:39] LABS: LIPASE 45 U/L (12-53)
[2024-10-01 18:41] LABS: AMYLASE 47 U/L (30-118); IRON (FE) 99 UG/DL (50-170); PERCENT SATURATION 29.8 % (13.2-45.0); TOTAL IRON BINDING CAPACITY 332 UG/DL (250-425)
[2024-10-01 18:42] LABS: ALBUMIN 3.3 G/DL (3.2-5.2); ALKALINE PHOSPHATASE 124 U/L (35-104); ALT/SGPT 41 U/L (7.0-40); AST/SGOT 26 U/L (<34); BILIRUBIN,TOTAL 0.3 MG/DL (0.3-1.2); BLOOD UREA NITROGEN 13 MG/DL (9-23); CALCIUM LEVEL 9.2 MG/DL (8.5-10.1); CARBON DIOXIDE LEVEL 25 MMOL/L (20-31); CHLORIDE LEVEL 112 MMOL/L (98-107); CREATININE FOR GFR 0.62 MG/DL (0.55-1.30); FERRITIN 12.1 NG/ML (7.3-270.7); GLOMERULAR FILTRATION RATE > 60.0 (>51); GLUCOSE, FASTING 88 MG/DL (60-100); POTASSIUM SERUM 4.7 MMOL/L (3.5-5.1); SODIUM LEVEL 145 MMOL/L (136-145); TOTAL PROTEIN 6.5 G/DL (5.7-8.2)
[2024-10-01 19:11] LABS: HEMOGLOBIN A1c 5.9 % (4.0-6.0)
== END ==
LOC: M PLALAB 15:02
PROVIDERS: ATTEND Nurse Practitioner Adult Health
DX: E11.9 Type 2 diabetes mellitus without complications (principal); D50.9 Iron deficiency anemia, unspecified

== ENCOUNTER → 2024-10-12 | Outpatient (CLI) | payer OTHER | LOC: M PAIN 14:00 | PROVIDERS: ATTEND Nurse Practitioner Family | DX: M51.16 Intervertebral disc disorders with radiculopathy, lumbar region (principal); G89.29 Other chronic pain; I10 Essential (primary) hypertension; E78.5 Hyperlipidemia, unspecified; Z79.899 Other long term (current) drug therapy; Z88.0 Allergy status to penicillin; Z88.1 Allergy status to other antibiotic agents; Z88.2 Allergy status to sulfonamides; Z88.8 Allergy status to other drugs, medicaments and biological substances ==

== ENCOUNTER 2024-10-23 13:14 | Outpatient (CLI) | payer OTHER ==
[~2024-10-23 13:14] MED LIST changes: +ALBUTEROL SULFATE 2.5MG/0.5ML INH NEB SOLN INH PRN; +EPINEPHrine INJ 1 MG/ML 1ML AMP IM PRN; +diphenhydrAMINE 50MG/ML VIAL IV PRN; +methylPREDNISolone 125MG 2ML VIAL IV PRN
[2024-10-23 13:55] VITALS: BP 133/76; O2SAT 98
[2024-10-23] MEDS: IRON SUCROSE 300 MG in NS 250 ML IV ONE (14:39)
[2024-10-23 16:35] VITALS: BP 131/81; O2SAT 98
== END 2024-10-23 16:42 | disposition home or self-care (01) ==
LOC: M INFU 13:14
PROVIDERS: ATTEND Nurse Practitioner Adult Health
DX: D50.9 Iron deficiency anemia, unspecified (principal); Z88.0 Allergy status to penicillin; Z88.1 Allergy status to other antibiotic agents; Z88.2 Allergy status to sulfonamides; Z88.8 Allergy status to other drugs, medicaments and biological substances
CPT/HCPCS: 96365; 96366; J1756

== ENCOUNTER → 2024-10-26 | Outpatient (CLI) | payer OTHER ==
[~2024-10-26] MED LIST changes: -ALBUTEROL SULFATE 2.5MG/0.5ML INH NEB SOLN INH PRN; -EPINEPHrine INJ 1 MG/ML 1ML AMP IM PRN; -diphenhydrAMINE 50MG/ML VIAL IV PRN; -methylPREDNISolone 125MG 2ML VIAL IV PRN
== END ==
LOC: M PLARAD 14:15
PROVIDERS: ATTEND Nurse Practitioner Family
DX: M51.16 Intervertebral disc disorders with radiculopathy, lumbar region (principal); M51.360 Other intervertebral disc degeneration, lumbar region with discogenic back pain only

== ENCOUNTER 2024-11-13 13:30 | Outpatient (CLI) | payer OTHER ==
[~2024-11-13] VITALS: Ht 154.9 cm; Wt 68.0 kg
[2024-11-13] MEDS: IRON SUCROSE 300 MG in NS 250 ML IV ONE (13:29)
[~2024-11-13 13:30] MED LIST changes: +ALBUTEROL SULFATE 2.5MG/0.5ML INH NEB SOLN INH PRN; +EPINEPHrine INJ 1 MG/ML 1ML AMP IM PRN; +diphenhydrAMINE 50MG/ML VIAL IV PRN; +methylPREDNISolone 125MG 2ML VIAL IV PRN
[2024-11-13 13:35] VITALS: BP 133/72; O2SAT 97
[2024-11-13 15:14] VITALS: BP 127/73; O2SAT 99
== END 2024-11-13 15:20 ==
LOC: M INFU 13:30
PROVIDERS: ATTEND Nurse Practitioner Adult Health
DX: D50.9 Iron deficiency anemia, unspecified (principal); Z88.0 Allergy status to penicillin; Z88.1 Allergy status to other antibiotic agents; Z88.2 Allergy status to sulfonamides; Z88.8 Allergy status to other drugs, medicaments and biological substances
CPT/HCPCS: 96365; 96366; J1756

== ENCOUNTER 2024-11-21 14:30 | Outpatient (CLI) | payer OTHER ==
[~2024-11-21] VITALS: Ht 154.9 cm; Wt 68.2 kg
[2024-11-21 14:30] VITALS: BP 118/66; O2SAT 97
[2024-11-21] MEDS: IRON SUCROSE 300 MG in NS 250 ML OVER 90 MIN. IV ONE (14:40)
[2024-11-21 16:22] VITALS: BP 122/68; O2SAT 98
== END 2024-11-21 16:23 ==
LOC: M INFU 14:30
PROVIDERS: ATTEND Nurse Practitioner Adult Health
DX: D50.9 Iron deficiency anemia, unspecified (principal); Z88.0 Allergy status to penicillin; Z88.1 Allergy status to other antibiotic agents; Z88.2 Allergy status to sulfonamides; Z88.8 Allergy status to other drugs, medicaments and biological substances
CPT/HCPCS: 96365; 96366; J1756

== ENCOUNTER 2024-11-29 14:27 | Outpatient (CLI) | payer OTHER ==
[~2024-11-29] VITALS: Ht 154.9 cm; Wt 68.0 kg
[2024-11-29 14:35] VITALS: BP 125/69; O2SAT 95
[2024-11-29] MEDS: IRON SUCROSE 300 MG in NS 250 ML OVER 90 MIN. IV ONE (14:48)
[2024-11-29 16:30] VITALS: BP 125/81; O2SAT 98
== END 2024-11-29 16:30 ==
LOC: M INFU 14:27
PROVIDERS: ATTEND Nurse Practitioner Adult Health
DX: D50.9 Iron deficiency anemia, unspecified (principal); Z88.0 Allergy status to penicillin; Z88.1 Allergy status to other antibiotic agents; Z88.2 Allergy status to sulfonamides; Z88.8 Allergy status to other drugs, medicaments and biological substances
CPT/HCPCS: 96365; 96366; J1756

== ENCOUNTER → 2025-02-11 | Outpatient (CLI) | payer OTHER ==
[~2025-02-11] MED LIST changes: -ALBUTEROL SULFATE 2.5MG/0.5ML INH NEB SOLN INH PRN; -AMBI10TA PO; -EPINEPHrine INJ 1 MG/ML 1ML AMP IM PRN; +ZOLP-533 PO; -diphenhydrAMINE 50MG/ML VIAL IV PRN; -methylPREDNISolone 125MG 2ML VIAL IV PRN
[2025-02-11 14:25] LABS: HEMATOCRIT 44.2 % (36.0-47.0); HEMOGLOBIN 13.9 g/dl (12.0-15.5); MEAN CORPUSCULAR HEMOGLOBIN 31.8 pg (27.0-33.0); MEAN CORPUSCULAR HGB CONC 31.4 g/dl (32.0-36.5); MEAN CORPUSCULAR VOLUME 101.1 fl (80.0-96.0); PLATELET COUNT, AUTOMATED 307 10^3/uL (150-450); RED BLOOD COUNT 4.37 10^6/uL (4.00-5.40); WHITE BLOOD COUNT 7.6 10^3/uL (4.0-10.0)
[2025-02-11 14:32] LABS: FERRITIN 142.1 NG/ML (7.3-270.7); THYROID STIMULATING HORMONE 2.402 uIU/ML (0.55-4.78)
[2025-02-11 14:33] LABS: LIPASE 44 U/L (12-53)
[2025-02-11 14:34] LABS: FOLATE > 24.0 NG/ML (>5.4); VITAMIN B12 LEVEL 694 PG/ML (211-911)
[2025-02-11 14:35] LABS: AMYLASE 50 U/L (30-118); FREE T4 0.92 NG/DL (0.89-1.76)
[2025-02-11 14:36] LABS: ALBUMIN 3.5 G/DL (3.2-5.2); ALKALINE PHOSPHATASE 125 U/L (35-104); ALT/SGPT 79 U/L (7.0-40); AST/SGOT 39 U/L (<34); BILIRUBIN,TOTAL 0.4 MG/DL (0.3-1.2); BLOOD UREA NITROGEN 8 MG/DL (9-23); CARBON DIOXIDE LEVEL 26 MMOL/L (20-31); CHLORIDE LEVEL 113 MMOL/L (98-107); CHOLESTEROL LEVEL 127 MG/DL (<200); CHOLESTEROL RISK RATIO 1.86 (<5); GLOMERULAR FILTRATION RATE > 90.0 (>51); GLUCOSE, FASTING 95 MG/DL (60-100); HDL CHOLESTEROL 68.1 MG/DL (>40); LDL CHOLESTEROL 46.9 MG/DL (<100); NON-HDL-C 58.9 MG/DL; POTASSIUM SERUM 4.8 MMOL/L (3.5-5.1); SODIUM LEVEL 147 MMOL/L (136-145); TOTAL PROTEIN 6.5 G/DL (5.7-8.2); TRIGLYCERIDES LEVEL 60 MG/DL (<150)
== END ==
LOC: M PLALAB 10:10
PROVIDERS: ATTEND Nurse Practitioner Adult Health
DX: E11.9 Type 2 diabetes mellitus without complications (principal)

== ENCOUNTER → 2025-04-29 | Outpatient (CLI) | payer OTHER ==
[2025-04-29 17:29] LABS: PLATELET COUNT, AUTOMATED 299 10^3/uL (150-450)
[2025-04-29 17:41] LABS: ESTIMATED AVERAGE GLUCOSE 131.0 MG/DL (60-110)
[2025-04-29 17:50] LABS: ALT/SGPT 96 U/L (7.0-40); AST/SGOT 51 U/L (<34); CALCIUM LEVEL 9.0 MG/DL (8.5-10.1); CARBON DIOXIDE LEVEL 23 MMOL/L (20-31); CHLORIDE LEVEL 110 MMOL/L (98-107); CREATININE FOR GFR 0.66 MG/DL (0.55-1.30); FREE T4 1.10 NG/DL (0.89-1.76); GLOMERULAR FILTRATION RATE > 90.0 (>51); POTASSIUM SERUM 3.8 MMOL/L (3.5-5.1); SODIUM LEVEL 144 MMOL/L (136-145)
[2025-04-29 17:51] LABS: LUTEINIZING HORMONE 18.0 mIU/ML
[2025-05-06 03:17] LABS: ALPHA 2-MACROGLOBULINS,QN 209 mg/dL (106-279); ALT (SGPT) P5P 52 U/L (6-29); APOLIPOPROTEIN A-1 191 mg/dL (101-198); FIBROSIS SCORE 0.09; FIBROSIS STAGE NO FIBROSIS (F0); GGT 20 U/L (3-70); HAPTOGLOBIN 141 mg/dL (43-212); NECROINFLAM ACT GRADE NO ACTIVITY (A0); NECROINFLAM ACT SCORE 0.24
== END ==
LOC: M PLALAB 15:09
PROVIDERS: ATTEND Nurse Practitioner Adult Health
DX: D50.9 Iron deficiency anemia, unspecified (principal); R74.8 Abnormal levels of other serum enzymes; E11.9 Type 2 diabetes mellitus without complications; Z83.49 Family history of other endocrine, nutritional and metabolic diseases; Z78.0 Asymptomatic menopausal state

== ENCOUNTER → 2025-06-12 | Outpatient (CLI) | payer OTHER | LOC: M WHC 14:02 | PROVIDERS: ATTEND Nurse Practitioner Adult Health | DX: Z87.42 Personal history of other diseases of the female genital tract (principal); R10.9 Unspecified abdominal pain ==

== ENCOUNTER → 2025-09-03 | Outpatient (REF) | payer OTHER | LOC: M SFHCPLAZ 16:50 | PROVIDERS: ATTEND Nurse Practitioner Adult Health | DX: R35.0 Frequency of micturition (principal) ==

== ENCOUNTER → 2025-09-12 | Outpatient (CLI) | payer OTHER ==
[2025-09-12 13:22] LABS: PLATELET COUNT, AUTOMATED 310 10^3/uL (150-450)
[2025-09-12 13:58] LABS: ESTIMATED AVERAGE GLUCOSE 117.0 MG/DL (60-110)
[2025-09-12 14:00] LABS: ALT/SGPT 69 U/L (7.0-40); AST/SGOT 42 U/L (<34); CALCIUM LEVEL 9.2 MG/DL (8.3-10.6); CARBON DIOXIDE LEVEL 26 MMOL/L (20-31); CHLORIDE LEVEL 113 MMOL/L (98-107); CREATININE FOR GFR 0.66 MG/DL (0.55-1.30); GLOMERULAR FILTRATION RATE > 90.0 (>45); POTASSIUM SERUM 5.0 MMOL/L (3.5-5.1); SODIUM LEVEL 145 MMOL/L (136-145)
[2025-09-12 14:01] LABS: FREE T4 0.92 NG/DL (0.89-1.76)
== END ==
LOC: M PLALAB 09:47
PROVIDERS: ATTEND Nurse Practitioner Adult Health
DX: D50.9 Iron deficiency anemia, unspecified (principal); E11.9 Type 2 diabetes mellitus without complications; Z83.49 Family history of other endocrine, nutritional and metabolic diseases

== ENCOUNTER → 2025-09-12 | Outpatient (CLI) | payer OTHER | LOC: M PLAIMG 09:50 | PROVIDERS: ATTEND Nurse Practitioner Adult Health | DX: M16.12 Unilateral primary osteoarthritis, left hip (principal); D50.9 Iron deficiency anemia, unspecified; E11.9 Type 2 diabetes mellitus without complications; Z83.49 Family history of other endocrine, nutritional and metabolic diseases ==